=== PATIENT | female | born 1945 ===

== ENCOUNTER 2018-03-02 13:44 | Emergency (ER) | payer MEDICARE, OTHER ==
[2018-03-02 13:45] VITALS: BMI 29.9
[2018-03-02 13:58] VITALS: BP 110/63; PULSE 74; RESP 17; TEMP 97.6; O2SAT 97
--- NOTE | 2018-03-02 14:16 | ED PDOC ---
Arrival/HPI - General Chief Complaint: Finger,Hand,&Wrist Time Seen by Provider: 03/02/18 14:04 Historian: Patient - History of Present Illness Narrative History of Present Illness (Text): 03/02/18 14:11 A 72 year old female, whose past medical history includes hypertension, hyperlipidemia, Arthritis, C- section, and hysterectomy, presents to the emergency department with a complaint of 2 week duration left pinky finger pain s/p fall. The patient states that she had a mechanical fall, and her body fell onto her left hand. She complains of pain with movement of the fingers. The patient denies any other injury. She denies head trauma or loss of consciousness. The pateint denies fevers, chills, headache, dizziness, chest pain, shortness of breath, dyspnea on exertion, cough, abdominal pain, nausea, vomiting, diarrhea, back pain, neck pain, urinary/bowel changes, or any other complaint. 03/03/18 18:00 Time/Duration: Other (2 weeks) Symptom Onset: Sudden Symptom Course: Unchanged Activities at Onset: Rest, Light Context: Home Past Medical History - Provider Review Nursing Documentation Reviewed: Yes - Infectious Disease Hx of Infectious Diseases: None - Tetanus Immunization Tetanus Immunization: Unknown - Reproductive Menopause: Yes - Cardiac Hx Cardiac Disorders: Yes Hx Hypertension: Yes - Pulmonary Hx Respiratory Disorders: No - Neurological Hx Neurological Disorder: No - HEENT Hx HEENT Disorder: No - Renal Hx Renal Disorder: No - Endocrine/Metabolic Hx Endocrine Disorders: No - Hematological/Oncological Hx Blood Disorders: No - Integumentary Hx Dermatological Disorder: No - Musculoskeletal/Rheumatological Hx Musculoskeletal Disorders: Yes Hx Arthritis: Yes - Gastrointestinal Hx Gastrointestinal Disorders: No - Genitourinary/Gynecological Hx Genitourinary Disorders: Yes - Psychiatric Hx Psychophysiologic Disorder: Yes Hx Depression: Yes Hx Substance Use: No - Surgical History Hx Section: Yes Hx Hysterectomy: Yes Other/Comment: bladder surgery - Anesthesia Hx Anesthesia Reactions: No Hx Malignant Hyperthermia: No - Suicidal Assessment Feels Threatened In Home Enviroment: No Family/Social History - Physician Review Nursing Documentation Reviewed: Yes Family/Social History: No Known Family HX Smoking Status: Never Smoked Hx Alcohol Use: No Hx Substance Use: No Hx Substance Use Treatment: No Allergies/Home Meds Allergies/Adverse Reactions: Allergies aspirin Allergy (Verified 03/02/18 13:56) SWELLING Home Medications: Home Meds Medication Instructions Recorded Confirmed RX: Atorvastatin [Lipitor] 20 mg PO DAILY 01/02/16 03/02/18 RX: Valsartan [Diovan] 160 mg PO DAILY 01/02/16 03/02/18 Clopidogrel [Plavix] 75 mg PO DAILY 03/14/16 03/02/18 Donepezil HCl [Aricept ODT] 5 mg PO HS 03/14/16 03/02/18 Montelukast Sodium [Singulair] 10 mg PO DAILY 03/14/16 03/02/18 Review of Systems - Physician Review All systems were reviewed & negative as marked: Yes - Review of Systems Constitutional: absent: Fevers Respiratory: absent: SOB, Cough Cardiovascular: absent: Chest Pain, ANN Gastrointestinal: absent: Abdominal Pain, Stool Changes, Diarrhea, Nausea, Vomiting Genitourinary Female: absent: Urine Output Changes Musculoskeletal: Other (Left hand pain.). absent: Back Pain, Neck Pain Neurological: absent: Headache, Dizziness Physical Exam Vital Signs Reviewed: Yes Vital Signs Temp Pulse Resp BP Pulse Ox 03/02/18 13:58 97.6 F 74 17 110/63 97 Temperature: Afebrile Blood Pressure: Normal Pulse: Regular Respiratory Rate: Normal Appearance: Positive for: Well-Appearing, Non-Toxic, Comfortable Pain Distress: None Mental Status: Positive for: Alert and Oriented X 3 - Systems Exam Upper Extremity: Present: Normal ROM (Patient moving left hand and fingers.), NORMAL PULSES, Tenderness (Left hand 5th digit mildly TTP. ), Neurovascularly Intact, Capillary Refill < 2s, Deformity (Left hand. Skin intact. ). No: Cyanosis, Edema, Swelling Medical Decision Making ED Course and Treatment: 03/02/18 14:18 Impression: A 72 year old female presents to the emergency department with a complaint of left hand pain s/p fall 2 week ago. Plan: -- Left Hand X- Ray -- Reassess and disposition Prior Visits: Notes and results from previous visits were reviewed. Progress Notes: PROCEDURE: Left Hand and 5th digit radiographs Signed By: memo Aguilera MD Date Signed: 03/02/18 1405 IMPRESSION: No evidence of fracture. Left Hand X- Ray shows no fracture. Patient is in no acute distress. I have discussed the results and plan with the patient, who expresses understanding. Patient in agreement with plan to be discharged home. Patient is stable for discharge. Patient was instructed to follow up with physician or return if symptoms worsen or new concerning symptoms arise. - Scribe Statement The provider has reviewed the documentation as recorded by the Scribe Cara Campbell Provider Scribe Attestation: All medical record entries made by the Scribe were at my direction and personally dictated by me. I have reviewed the chart and agree that the record accurately reflects my personal performance of the history, physical exam, medical decision making, and the department course for this patient. I have also personally directed, reviewed, and agree with the discharge instructions and disposition. Disposition/Present on Arrival - Present on Arrival Any Indicators Present on Arrival: No History of DVT/PE: No History of Uncontrolled Diabetes: No Urinary Catheter: No History of Decub. Ulcer: No History Surgical Site Infection Following: None - Disposition Have Diagnosis and Disposition been Completed?: Yes Diagnosis: Contusion of finger of left hand Disposition: HOME/ ROUTINE Disposition Time: 15:00 Patient Plan: Discharge Condition: GOOD Discharge Instructions (ExitCare): Contusion (DC), Common Finger Injuries (DC) Print Language: ROMANSH Referrals: Adán Duarte MD [Family Provider] - Follow up with primary Forms: [employer] ([place])
--- NOTE | 2018-03-02 14:53 | RAD ---
PROCEDURE: Left Hand and 5th digit radiographs. HISTORY: injury COMPARISON: None. FINDINGS: BONES: Normal. No fracture. JOINTS: Normal. No osteoarthritic changes. SOFT TISSUES: Normal. OTHER FINDINGS: None. IMPRESSION: No evidence of fracture
== END 2018-03-02 15:12 | disposition home or self-care (01) ==
LOC: ED 13:44
DX: S60.052A Contusion of left little finger without damage to nail, initial encounter (principal); W01.0XXA Fall on same level from slipping, tripping and stumbling without subsequent striking against object, initial encounter; Y92.9 Unspecified place or not applicable

== ENCOUNTER 2018-08-10 11:46 | Outpatient (CLI) | payer MEDICARE, OTHER | END 2018-08-10 11:47 | disposition home or self-care (01) | LOC: RAD 11:46 ==